=== PATIENT | male | born 1980 | race Caucasian/White ===

== ENCOUNTER 2016-10-21 18:14 | Emergency (ER) | payer OTHER ==
[2016-10-21 19:05] LABS: ACETAMINOPHEN <10 ug/mL; ALBUMIN SERUM 5.4 g/dL (3.5-5.0); ALCOHOL BLOOD <5 mg/dL (0); ALKALINE PHOSPHATASE 58 U/L (32-92); ALT (SGPT) 35 U/L (10-40); AST (SGOT) 32 U/L (10-42); BILIRUBIN,TOTAL 0.5 mg/dL (0.2-2.0); BLOOD UREA NITROGEN 29 mg/dL (9-23); BUN/CREATININE RATIO 32.22; CALCIUM SERUM 9.7 mg/dL (8.4-10.2); CARBON DIOXIDE 26 mmol/L (22-31); CHLORIDE 103 mmol/L (100-111); CREATININE SERUM 0.9 mg/dL (0.6-1.4); GLOM FILT RATE Estimated 108.7 mL/min (>60); GLUCOSE FASTING 119 mg/dL (70-110); PROTEIN TOTAL SERUM 8.4 g/dL (6.0-8.3); SALICYLATE <4.0 mg/dL; SODIUM 138 mmol/L (135-145)
[2016-10-21 19:11] LABS: BASOPHIL# 0.1 X10e3 (0-0.3); BASOPHIL% 0.8 % (0-2.5); DIFF IND NO; EOSINOPHIL% 0.7 % (0.0-7.0); HEMATOCRIT 52.5 % (38.0-50.0); HEMOGLOBIN 17.3 gm/dL (13.0-16.0); LYMPHOCYTE# 1.4 X10e3 (1.0-3.5); LYMPHOCYTE% 19.8 % (17.0-45.0); MEAN CORPUSCULAR HEMOGLOBIN 30.3 PG (28-34); MEAN CORPUSCULAR HGB CONC 32.9 g/dL (30-36); MEAN PLATELET VOLUME 9.1 FL (6.5-11.5); MONOCYTE# 0.5 X10e3 (0-1.0); MONOCYTE% 7.4 % (3.0-12.0); NEUTROPHIL# 4.9 X10e3 (1.5-7.1); NEUTROPHIL% 71.3 % (40-75); PLATELET COUNT 158 X10e3 (140-420); RED BLOOD COUNT 5.71 X10e (3.90-5.60); RED CELL DISTRIBUTION WIDTH 13.3 % (11.0-15.5); WHITE BLOOD COUNT 6.9 X10e3 (4.0-10.5)
== END 2016-10-21 21:11 | disposition left against medical advice (07) ==
LOC: CED 18:14
PROVIDERS: Emergency Medicine
DX: F20.89 Other schizophrenia (principal); F17.200 Nicotine dependence, unspecified, uncomplicated
CPT/HCPCS: 80053; 85025; 99285; G0480; J3486